=== PATIENT | male | born 1960 | race Caucasian/White ===

== ENCOUNTER 2023-08-04 23:44 | Emergency (ER) | payer BC ==
[~2023-08-04] VITALS: Ht 167.6 cm; Wt 86.2 kg
[2023-08-04] MEDS ORDERED: WARF-58 PO (23:56)
[2023-08-04] MEDS ORDERED: CARV25TA PO (23:56)
[2023-08-05] MEDS ORDERED: ASPIRIN 81 MG TAB.CHEW ONE (00:19)
[2023-08-05 00:20] VITALS: BP 146/87
[2023-08-05] MEDS: NITROGLYCERIN OINT 1 GM PACKET TP ONE (00:20)
[2023-08-05] MEDS: ASPIRIN 81 MG TAB.CHEW PO ONE (00:20)
[2023-08-05] MEDS: NITROGLYCERIN 0.4 MG/TAB BOTTLE SL ONE (00:20)
[2023-08-05] MEDS ORDERED: NITROGLYCERIN OINT 1 GM PACKET TP ONE (00:20)
[2023-08-05] MEDS ORDERED: NITROGLYCERIN 0.4 MG/TAB BOTTLE SL ONE (00:20)
[2023-08-05 00:32] LABS: CALCIUM 9.7 mg/dL (8.5-10.1); CARBON DIOXIDE 30 mmol/L (21-32); CHLORIDE 105 mmol/L (98-107); CREATININE 1.4 mg/dL (0.6-1.3); GLUCOSE 122 mg/dL (74-106); POTASSIUM 4.1 mmol/L (3.5-5.1); SODIUM SERUM 142 mmol/L (136-145); UREA NITROGEN, BLOOD 22 mg/dL (7-18)
[2023-08-05 00:45] LABS: ALANINE AMINOTRANSFERASE 38 U/L (16-63); ALBUMIN 3.5 g/dL (3.4-5.0); ALKALINE PHOSPHATASE 90 U/L (50-136); ASPARTATE AMINOTRANSFERASE 9 U/L (15-37); BILIRUBIN,DIRECT 0.1 mg/dL (0.0-0.2); BILIRUBIN,TOTAL 0.6 mg/dL (0.2-1.0); NT-PRO BNP 1223 pg/mL (0-125); TOTAL PROTEIN, SERUM 6.9 g/dL (6.4-8.2)
[2023-08-05 01:06] LABS: BASOPHILS % (AUTO) 0.4 % (0.0-2.0); EOSINOPHILS # (AUTO) 0.5 K/uL (0.0-0.7); EOSINOPHILS % (AUTO) 9.8 % (0.0-7.0); HEMATOCRIT 38.3 % (36.7-47.1); HEMOGLOBIN 12.8 g/dL (12.5-16.3); LYMPHOCYTES # (AUTO) 0.6 K/uL (0.8-4.8); LYMPHOCYTES % (AUTO) 13.4 % (20.5-51.5); MEAN CORPUSCULAR HGB CONC 33 g/dL (32.5-36.3); MEAN CORPUSCULAR VOLUME 90.1 fL (73.0-96.2); MONOCYTES # (AUTO) 0.5 K/uL (0.1-1.30); MONOCYTES % (AUTO) 11.2 % (0.0-11.0); NEUTROPHILS % (AUTO) 65.2 % (38.5-71.5); PLATELET COUNT (AUTO) 121 K/uL (152-348); RED BLOOD CELL COUNT(AUTO) 4.25 MIL/uL (4.06-5.63); RED CELL DISTRIBUTION WIDTH 15.2 % (12.1-16.2); WHITE BLOOD COUNT (AUTO) 4.7 K/uL (3.6-10.2)
[2023-08-05 01:07] LABS: DIFFERENTIAL COMMENT 1
[2023-08-05 09:10] VITALS: O2SAT 98
== END 2023-08-05 09:10 | disposition short-term general hospital (02) ==
LOC: ER 23:46
DX: R07.89 Other chest pain (principal); I11.0 Hypertensive heart disease with heart failure; I50.9 Heart failure, unspecified; I44.7 Left bundle-branch block, unspecified; E78.00 Pure hypercholesterolemia, unspecified; E78.5 Hyperlipidemia, unspecified; Z79.899 Other long term (current) drug therapy
CPT/HCPCS: 36415; 71045; 84484; 85025; 85610; 93005; A4606; A4663